=== PATIENT | male | born 1985 | race Caucasian/White ===

== ENCOUNTER 2016-11-23 22:38 | Emergency (ER) | payer OTHER ==
[~2016-11-23 22:38] MED LIST: ALBUTEROL17 GM INH; CHANTIX1 MG PO; DICLOFENAC PO; FLEXERIL10 MG PO; HYDROXYZINE HCL25 M1; LITHIUM PO; MOBIC15 MG PO; NO MEDICATIONS; ROBAXIN500 MG PO; SKELAXIN PO; VOLTAREN75 MG PO
[2016-11-23] MEDS ORDERED: VOLTAREN75 MG PO (23:37)
== END 2016-11-23 23:37 | disposition home or self-care (01) ==
LOC: SED 22:38
DX: M79.671 Pain in right foot (principal); M79.672 Pain in left foot; F31.9 Bipolar disorder, unspecified; F17.210 Nicotine dependence, cigarettes, uncomplicated; Z98.890 Other specified postprocedural states
CPT/HCPCS: 99282